=== PATIENT | female | born 1940 | race African-American/Black ===

== ENCOUNTER 2022-11-09 10:36 | Emergency (ER) | payer OTHER ==
[~2022-11-09] VITALS: Ht 165.1 cm; Wt 72.3 kg
[2022-11-09] MEDS ORDERED: ONDANSETRON HCL 4MG/2ML INJ IV ONE (11:00)
[2022-11-09] MEDS ORDERED: MORPHINE SULFATE 4 MG/ML CPJ (NOT FOR IM USE) IV ONE ×2 (11:00→16:30)
[2022-11-09 11:59] LABS: BASOPHILS % 0.3 % (0.0-2.0); EOSINOPHILS % 0.8 % (0.0-5.0); HEMATOCRIT. 39.8 % (36.0-48.0); LYMPHOCYTES % 19.7 % (20.0-50.0); MEAN CORPUSCULAR HEMOGLOBIN 27.3 pg (28.0-32.0); MEAN CORPUSCULAR VOLUME 83.7 fL (81.0-99.0); MEAN PLATELET VOLUME 10.2 fl (7.4-10.4); MONOCYTES % 6.2 % (2.0-8.0); PLATELET 174 x1000/uL (130-400); RED BLOOD CELL COUNT 4.76 mill/uL (4.2-5.4)
[2022-11-09 12:38] LABS: PARTIAL THROMBOPLASTIN TIME 30.9 sec (23.4-31.0)
[2022-11-09] MEDS ORDERED: ENOXAPARIN 60MG/0.6ML SYR SUBCUT SCH (13:45)
[2022-11-09] MEDS ORDERED: ENOXAPARIN 80MG/0.8ML SYR SUBCUT SCH (13:50)
[2022-11-09] MEDS ORDERED: IOHEXOL-350 100 ML BOTTLE ONE (14:28)
[2022-11-09 15:13] LABS: CHLORIDE 105 mEq/L (98-107)
[2022-11-09 18:00] VITALS: BP 131/59
== END 2022-11-09 19:25 | disposition short-term general hospital (02) ==
LOC: ER 10:36
DX: I70.90 Unspecified atherosclerosis (principal); I10 Essential (primary) hypertension
CPT/HCPCS: 36415; 71045; 71275; 73206; 74174; 80053; 83605; 83690; 83880; 84484; 85025; 85610; 85730; 86850; 86900; 86901; 93005; 96372; 96374; 96375; 99291; J1650; J2270; J2405; Q9967

== ENCOUNTER 2024-08-12 10:58 | Inpatient (IN) | payer OTHER ==
[~2024-08-12] VITALS: Ht 154.9 cm; Wt 59.0 kg
[2024-08-12 12:06] LABS: EOSINOPHILS % 3.7 % (0.0-5.0); HEMATOCRIT. 41.9 % (36.0-48.0); HEMOGLOBIN. 13.7 g/dL (12.0-16.0); LYMPHOCYTES % 22.8 % (20.0-50.0); MEAN CORPUSCULAR HEMOGLOBIN 28.8 pg (28.0-32.0); MEAN CORPUSCULAR HGB CONC 32.7 g/dL (31.0-37.0); MEAN CORPUSCULAR VOLUME 88.1 fL (81.0-99.0); MEAN PLATELET VOLUME 9.8 fl (7.4-10.4); MONOCYTES % 8.9 % (2.0-8.0); NEUTROPHILS % 63.6 % (40.0-76.0); PLATELET 126 x1000/uL (130-400); RED BLOOD CELL COUNT 4.76 mill/uL (4.2-5.4); RED CELL DISTRIBUTION WIDTH 15.9 % (11.6-14.6); WHITE BLOOD COUNT 4.8 x1000/uL (4.5-11.0)
[2024-08-12 12:19] LABS: CHLORIDE 106 mEq/L (98-107); POTASSIUM 4.7 mEq/L (3.5-5.1); SODIUM 141 mEq/L (136-145)
[2024-08-12 12:20] LABS: CALCIUM 9.7 mg/dL (8.7-10.4); CARBON DIOXIDE 29 mEq/L (21-32)
[2024-08-12 12:25] LABS: CREATININE 1.3 mg/dL (0.6-1.0); GLUCOSE 153 mg/dL (70-105); UREA NITROGEN BLOOD 19 mg/dL (9-23)
[2024-08-12 12:26] LABS: TROPONIN I HIGH SENSITIVITY 10 ng/L (3.0-34)
[2024-08-12] MEDS: ACETAMINOPHEN 325MG TABLET PO ONE (12:57)
[2024-08-12] MEDS: ACETAMINOPHEN 325MG TABLET ONE (14:12)
[2024-08-12 14:16] LABS: TROPONIN I HIGH SENSITIVITY 10 ng/L (3.0-34)
[2024-08-12] MEDS ORDERED: ONDANSETRON HCL 4MG/2ML INJ IV PRN (18:15)
[2024-08-12] MEDS ORDERED: IPRATROPIUM/ALBUTEROL 0.5-3(2.5)MG/3ML NEB NEB PRN (18:15)
[2024-08-12] MEDS ORDERED: ACETAMINOPHEN 325MG TABLET PO PRN (18:15)
[2024-08-12] MEDS ORDERED: ENOXAPARIN 40MG/0.4ML SYR SUBCUT SCH (18:15)
[2024-08-12] MEDS ORDERED: CLONIDINE 0.1MG TABLET PO PRN (18:15)
[2024-08-12 18:30] LABS: PROTHROMBIN TIME 11.6 sec (9.6-11.0)
[2024-08-12] MEDS ORDERED: ENOXAPARIN 60MG/0.6ML SYR SUBCUT NR (18:30)
[2024-08-12] MEDS: FUROSEMIDE 40MG/4ML VIAL IVP SCH (18:55)
[2024-08-12] MEDS ORDERED: ZOLPIDEM TARTRATE 5MG TABLET PO PRN (21:00)
[2024-08-12 21:45] VITALS: BP 140/62; PULSE 72; RESP 16; TEMP 36.44736
[2024-08-12] MEDS: ENOXAPARIN 60MG/0.6ML SYR SUBCUT SCH (21:55)
[2024-08-12 23:51] VITALS: BP 167/60; PULSE 76; RESP 16; TEMP 36.44736
[2024-08-13] VITALS: BP_SYST 145; BP_DIAS 80; BP_DIAS 85; PULSE 65; RESP 18; TEMP 36.50292; TEMP 36.5292; O2SAT 98
[2024-08-13 04:00] VITALS: BP 128/56; PULSE 66; RESP 20; TEMP 36.22512; O2SAT 99
[2024-08-13 05:43] LABS: POTASSIUM 3.7 mEq/L (3.5-5.1)
[2024-08-13 05:45] LABS: CALCIUM 9.2 mg/dL (8.7-10.4)
[2024-08-13 05:49] LABS: CREATININE 1.2 mg/dL (0.6-1.0)
[2024-08-13 05:50] LABS: HEMATOCRIT. 39.7 % (36.0-48.0); HEMOGLOBIN. 12.9 g/dL (12.0-16.0); MEAN CORPUSCULAR HEMOGLOBIN 28.4 pg (28.0-32.0); MEAN CORPUSCULAR HGB CONC 32.4 g/dL (31.0-37.0); MEAN CORPUSCULAR VOLUME 87.9 fL (81.0-99.0); MEAN PLATELET VOLUME 9.9 fl (7.4-10.4); PLATELET 130 x1000/uL (130-400); RED BLOOD CELL COUNT 4.52 mill/uL (4.2-5.4); RED CELL DISTRIBUTION WIDTH 15.6 % (11.6-14.6); WHITE BLOOD COUNT 4.9 x1000/uL (4.5-11.0)
[2024-08-13 05:53] LABS: CREATINE KINASE MB FRACTION 1.4 ng/mL (0.5-3.6)
[2024-08-13 07:35] LABS: DIFFERENTIAL COMMENT 1
[2024-08-13] MEDS: ASPIRIN 81MG EC TABLET PO SCH (12:06)
[2024-08-13] MEDS: AMLODIPINE 2.5MG TABLET PO SCH (12:07)
[2024-08-13] MEDS: CLOPIDOGREL 75MG TABLET PO SCH (12:09)
[2024-08-13] MEDS ORDERED: ASPI-1406 PO (14:58)
[2024-08-13] MEDS ORDERED: AMLO2.5T45 PO (14:58)
[2024-08-13] MEDS ORDERED: CLOP-31 PO (14:58)
[2024-08-13] MEDS ORDERED: ATOR10TA PO (14:58)
[2024-08-13 19:41] VITALS: BP 111/64; PULSE 85; TEMP 97.2; O2SAT 98
[2024-08-13 19:57] LABS: PLATELET ESTIMATE NORMAL
[2024-08-13] MEDS ORDERED: ATORVASTATIN CALCIUM 10MG TABLET PO SCH (21:00)
== END 2024-08-13 20:20 | disposition home or self-care (01) | DRG 282 ==
LOC: ER 11:00 → EDBEDREQ 12:32 → EDBEDREQTM 12:32 → 5WST 20:24 → UNDOADMIN 20:24 → 8WST 23:56
PROVIDERS: ADMIT Internal Medicine; ATTEND Internal Medicine
DX: I21.9 Acute myocardial infarction, unspecified (principal); I11.0 Hypertensive heart disease with heart failure; E78.5 Hyperlipidemia, unspecified; I25.10 Atherosclerotic heart disease of native coronary artery without angina pectoris; I49.1 Atrial premature depolarization; I50.9 Heart failure, unspecified; Z79.82 Long term (current) use of aspirin; Z86.73 Personal history of transient ischemic attack (TIA), and cerebral infarction without residual deficits; Z95.5 Presence of coronary angioplasty implant and graft
CPT/HCPCS: 36415; 71045; 80048; 82550; 82553; 84484; 85025; 93005; 93306; 93970; 99285; J1650; J1940

== ENCOUNTER 2025-03-24 14:48 | Inpatient (IN) | payer MEDICARE, OTHER ==
[~2025-03-24] VITALS: Ht 154.9 cm; Wt 64.0 kg
[~2025-03-24 14:48] MED LIST: AMLO2.5T45 PO; ASPI-1406 PO; ATOR10TA PO; CLOP-31 PO
[2025-03-24] MEDS ORDERED: CEFEPIME 1GM IN DEXT 5% 50ML IV ONE (15:00)
[2025-03-24] MEDS: VANCOMYCIN 1G PREMIX 200 ML IV ONE (15:44)
[2025-03-24] MEDS: SODIUM CHLORIDE 0.9% 1,000 ML IV ONE (15:44)
[2025-03-24 15:56] LABS: BASOPHILS % 0.5 % (0.0-2.0); EOSINOPHILS % 0.1 % (0.0-5.0); HEMOGLOBIN. 14.2 g/dL (12.0-16.0); LYMPHOCYTES % 14.3 % (20.0-50.0); MEAN CORPUSCULAR HEMOGLOBIN 27.9 pg (28.0-32.0); MEAN CORPUSCULAR HGB CONC 33.1 g/dL (31.0-37.0); MEAN CORPUSCULAR VOLUME 84.2 fL (81.0-99.0); MEAN PLATELET VOLUME 10.8 fl (7.4-10.4); MONOCYTES % 10.2 % (2.0-8.0); NEUTROPHILS % 74.9 % (40.0-76.0); PLATELET 121 x1000/uL (130-400)
[2025-03-24 16:07] LABS: INR 1.2
[2025-03-24 16:11] LABS: CHLORIDE 107 mEq/L (98-107); POTASSIUM 4.6 mEq/L (3.5-5.1); SODIUM 139 mEq/L (136-145)
[2025-03-24 16:12] LABS: CALCIUM 9.2 mg/dL (8.7-10.4); CARBON DIOXIDE 25 mEq/L (21-32)
[2025-03-24 16:17] LABS: CREATININE 1.3 mg/dL (0.6-1.0); GLUCOSE 131 mg/dL (70-105); UREA NITROGEN BLOOD 21 mg/dL (9-23)
[2025-03-24 16:19] LABS: ALANINE AMINOTRANSFERASE 494 IU/L (10-49); ASPARTATE AMINOTRANSFERASE 571 IU/L (<34); BILIRUBIN DIRECT 0.7 mg/dL (<=3.0)
[2025-03-24 16:20] LABS: BILIRUBIN TOTAL 1.4 mg/dL (0.1-1.0)
[2025-03-24 16:48] LABS: TROPONIN I HIGH SENSITIVITY 42 ng/L (3.0-34)
[2025-03-24 16:48] LABS: LACTIC ACID 2.5 mmol/L (0.4-2.0)
[2025-03-24] MEDS ORDERED: GUAIFENESIN 200MG/10ML SUGAR FREE UDC PO PRN (17:15)
[2025-03-24] MEDS ORDERED: MORPHINE SULFATE 2 MG/ML INJ (NOT FOR IM USE) IV PRN (17:15)
[2025-03-24] MEDS ORDERED: NITROGLYCERIN 0.4MG TABLET SL SL PRN (17:15)
[2025-03-24] MEDS ORDERED: CLONIDINE 0.1MG TABLET PO PRN (17:15)
[2025-03-24] MEDS ORDERED: MAGNESIUM/ALUMINUM HYDROXIDE/SIMETHICONE 30ML UDC PO PRN (17:15)
[2025-03-24] MEDS ORDERED: ACETAMINOPHEN 650MG/20.3ML UDC GT PRN ×2 (17:15)
[2025-03-24] MEDS ORDERED: DOCUSATE SODIUM 100MG CAPSULE PO PRN (17:15)
[2025-03-24] MEDS ORDERED: ONDANSETRON HCL 4MG/2ML INJ IV PRN (17:15)
[2025-03-24] MEDS ORDERED: HYDROCODONE/ACETAMINOPHEN 5/325MG TABLET PO PRN (17:15)
[2025-03-24] MEDS: DILTIAZEM HCL 5MG/ML 5ML VIAL IV ONE (17:34)
[2025-03-24] MEDS: ASPIRIN 325MG EC TABLET PO NR (18:02)
[2025-03-24 18:11] LABS: TROPONIN I HIGH SENSITIVITY 49 ng/L (3.0-34)
[2025-03-24] MEDS: METOPROLOL TARTRATE 5MG/5ML VIAL IV NR (18:19)
[2025-03-24 18:21] VITALS: PULSE 129; RESP 27; O2SAT 96
[2025-03-24] MEDS: IPRATROPIUM/ALBUTEROL 0.5-3(2.5)MG/3ML NEB HHN PRN (18:21)
[2025-03-24 18:38] LABS: HEPATITIS B SURFACE ANTIGEN NEGATIVE (Negative)
[2025-03-24] MEDS: FUROSEMIDE 40MG/4ML VIAL IVP NR (18:52)
[2025-03-24] MEDS: CEFEPIME 1GM/50ML 50 ML IV SCH (18:56)
[2025-03-24 18:58] LABS: HEPATITIS A AB IGM NEGATIVE (Negative)
[2025-03-24 18:59] LABS: HEPATITIS B CORE AB IGM NEGATIVE (Negative)
[2025-03-24 19:00] LABS: HEPATITIS C AB NON REACTIVE (Neg) (Negative)
[2025-03-24] MEDS ORDERED: IPRATROPIUM/ALBUTEROL 0.5-3(2.5)MG/3ML NEB HHN SCH (21:00)
[2025-03-24 21:15] LABS: TROPONIN I HIGH SENSITIVITY 64 ng/L (3.0-34)
[2025-03-24 21:35] VITALS: BP 119/93; PULSE 133; RESP 28; TEMP 36.5
[2025-03-24] MEDS: AMLODIPINE 2.5MG TABLET PO SCH (21:59)
[2025-03-24] MEDS: METOPROLOL TARTRATE 25MG TABLET PO SCH (21:59)
[2025-03-24] MEDS: ATORVASTATIN CALCIUM 40MG TABLET PO SCH (22:00)
[2025-03-24] MEDS: FUROSEMIDE 40MG/4ML VIAL IVP SCH (22:00)
[2025-03-24 23:07] LABS: CREATINE KINASE MB FRACTION 2.3 ng/mL (0.5-3.6)
[2025-03-25] VITALS (10 sets, daily range): BP systolic 95–132; BP diastolic 50–91; PULSE 94–150; RESP 13–24; TEMP 36.3–36.8; O2SAT 96–100
[2025-03-25 01:25] LABS: TROPONIN I HIGH SENSITIVITY 61 ng/L (3.0-34)
[2025-03-25 06:48] LABS: CALCIUM 9.1 mg/dL (8.7-10.4)
[2025-03-25 06:50] LABS: CREATINE KINASE MB FRACTION 2.9 ng/mL (0.5-3.6)
[2025-03-25 06:53] LABS: BASOPHILS % 0.4 % (0.0-2.0); CREATININE 1.4 mg/dL (0.6-1.0); DIFFERENTIAL COMMENT 0; EOSINOPHILS % 0.1 % (0.0-5.0); HEMATOCRIT. 43.6 % (36.0-48.0); HEMOGLOBIN. 14.3 g/dL (12.0-16.0); LYMPHOCYTES % 11.2 % (20.0-50.0); MEAN CORPUSCULAR HEMOGLOBIN 27.6 pg (28.0-32.0); MEAN CORPUSCULAR HGB CONC 32.8 g/dL (31.0-37.0); MEAN CORPUSCULAR VOLUME 84.1 fL (81.0-99.0); MEAN PLATELET VOLUME 11.4 fl (7.4-10.4); MONOCYTES % 8.2 % (2.0-8.0); NEUTROPHILS % 80.1 % (40.0-76.0); PLATELET 111 x1000/uL (130-400); RED BLOOD CELL COUNT 5.18 mill/uL (4.2-5.4); RED CELL DISTRIBUTION WIDTH 15.7 % (11.6-14.6); WHITE BLOOD COUNT 6.7 x1000/uL (4.5-11.0)
[2025-03-25 06:55] LABS: T4 FREE 1.37 ng/dL (0.89-1.76)
[2025-03-25 06:57] LABS: THYROID STIMULATING HORMONE 0.53 uIU/mL (0.55-4.78)
[2025-03-25] MEDS ORDERED: CEFEPIME 1GM IN DEXT 5% 50ML IV SCH (09:00)
[2025-03-25] MEDS ORDERED: APIX5TAB PO (09:11)
[2025-03-25] MEDS: CLOPIDOGREL 75MG TABLET PO SCH (09:58)
[2025-03-25] MEDS: APIXABAN 5 MG TABLET PO SCH (09:58)
[2025-03-25] MEDS: ASPIRIN 81MG EC TABLET PO SCH (09:58)
[2025-03-25] MEDS ORDERED: NALOXONE HCL 0.4MG/ML VIAL IV PRN (12:15)
[2025-03-25] MEDS ORDERED: VANCOMYCIN 750MG PREMIX 150 ML IV SCH (13:00)
[2025-03-25] MEDS: DIGOXIN 500MCG/2ML AMP IV NR (13:15)
[2025-03-25] MEDS: METOPROLOL TARTRATE 25MG TABLET PO SCH (15:04)
[2025-03-25] MEDS: IPRATROPIUM BROMIDE (0.02%) 0.5MG/2.5ML NEB HHN SCH (15:33)
[2025-03-25] MEDS: DIGOXIN 125MCG TABLET PO SCH (17:46)
[2025-03-25] MEDS ORDERED: CEFEPIME 1GM PREMIX 50ML IV SCH (18:00)
[2025-03-25 18:57] LABS: TROPONIN I HIGH SENSITIVITY 37 ng/L (3.0-34)
[2025-03-25] MEDS: METOPROLOL TARTRATE 50MG TABLET PO SCH (21:06)
[2025-03-26] VITALS (16 sets, daily range): BP systolic 94–129; BP diastolic 54–81; PULSE 97–145; RESP 13–28; TEMP 36.4–36.7; O2SAT 89–100
[2025-03-26] MEDS: ACETYLCYSTEINE 200MG/ML 20% VIAL 4ML INH SCH (02:18)
[2025-03-26 06:28] LABS: POTASSIUM 3.7 mEq/L (3.5-5.1)
[2025-03-26 06:34] LABS: CREATININE 1.4 mg/dL (0.6-1.0)
[2025-03-26 06:36] LABS: HEMATOCRIT 42.5 % (36.0-48.0); HEMOGLOBIN 13.8 g/dL (12.0-16.0); MEAN CORPUSCULAR HEMOGLOBIN 27.3 pg (28.0-32.0); MEAN CORPUSCULAR HGB CONC 32.4 g/dL (31.0-37.0); MEAN CORPUSCULAR VOLUME 84.4 fL (81.0-99.0); PLATELET 120 x1000/uL (130-400); RED BLOOD CELL COUNT 5.04 mill/uL (4.2-5.4); RED CELL DISTRIBUTION WIDTH 15.3 % (11.6-14.6)
[2025-03-26] MEDS: DIGOXIN 500MCG/2ML AMP IV SCH (12:01)
[2025-03-26] MEDS: FUROSEMIDE 40MG/4ML VIAL IVP SCH ×2 (14:00→21:38)
[2025-03-26] MEDS: METOPROLOL TARTRATE 25MG TABLET PO SCH ×2 (18:45→18:58)
[2025-03-26] MEDS: METOPROLOL TARTRATE 50MG TABLET PO SCH (20:15)
[2025-03-26] MEDS: SODIUM CHLORIDE 0.9% 1,000 ML IV SCH (21:39)
[2025-03-27] VITALS (14 sets, daily range): BP systolic 91–146; BP diastolic 59–108; PULSE 71–127; RESP 16–23; TEMP 36.5–36.8; O2SAT 92–100
[2025-03-27 06:18] LABS: POTASSIUM 3.9 mEq/L (3.5-5.1)
[2025-03-27 06:19] LABS: CALCIUM 8.7 mg/dL (8.7-10.4)
[2025-03-27 06:24] LABS: CREATININE 1.1 mg/dL (0.6-1.0)
[2025-03-27] MEDS: ALPRAZOLAM 0.25 MG TABLET PO SCH (13:45)
== END 2025-03-27 19:38 | disposition short-term general hospital (02) | DRG 871 ==
LOC: ER 14:48 → 5EST 16:44 → EDBEDREQSVC 16:45 → EDBEDREQTM 16:45 → EDBEDREQ 16:45 → ENRESERV 17:22 → CANRESERV 17:22 → EDBEDREQSVC 17:28 → ENRESERV 20:59
PROVIDERS: ADMIT Hospitalist; ATTEND Hospitalist
DX: A41.9 Sepsis, unspecified organism (principal); I21.4 Non-ST elevation (NSTEMI) myocardial infarction; J96.01 Acute respiratory failure with hypoxia; I50.43 Acute on chronic combined systolic (congestive) and diastolic (congestive) heart failure; R65.21 Severe sepsis with septic shock; N17.9 Acute kidney failure, unspecified; I48.19 Other persistent atrial fibrillation; M62.82 Rhabdomyolysis; I13.0 Hypertensive heart and chronic kidney disease with heart failure and stage 1 through stage 4 chronic kidney disease, or unspecified chronic kidney disease; Z66 Do not resuscitate; E11.40 Type 2 diabetes mellitus with diabetic neuropathy, unspecified; I49.9 Cardiac arrhythmia, unspecified; I25.10 Atherosclerotic heart disease of native coronary artery without angina pectoris; R74.01 Elevation of levels of liver transaminase levels; E11.65 Type 2 diabetes mellitus with hyperglycemia; D69.6 Thrombocytopenia, unspecified; E78.5 Hyperlipidemia, unspecified; N18.9 Chronic kidney disease, unspecified; I44.7 Left bundle-branch block, unspecified; G89.29 Other chronic pain; M54.2 Cervicalgia; R53.81 Other malaise; E11.22 Type 2 diabetes mellitus with diabetic chronic kidney disease; J44.9 Chronic obstructive pulmonary disease, unspecified; Z79.02 Long term (current) use of antithrombotics/antiplatelets; Z79.82 Long term (current) use of aspirin; Z86.73 Personal history of transient ischemic attack (TIA), and cerebral infarction without residual deficits; Z95.5 Presence of coronary angioplasty implant and graft; Z79.899 Other long term (current) drug therapy
CPT/HCPCS: 36415; 71045; 76700; 80048; 80061; 80076; 82550; 82553; 83036; 83516; 83605; 83735; 83880; 84145; 84439; 84443; 84484; 85025; 85027; 86705; 86709; 87340; 93005; 93306; 93970; 94070; 94640; 94664; 97110; 97116; 97162; 97166; 97535; 98960; 99291; A4606; J0692; J1160; J1940; J2270; J3370; J3490; J7030; J7608

== ENCOUNTER 2025-09-24 12:00 | Inpatient (IN) | payer MEDICARE, OTHER ==
[~2025-09-24] VITALS: Ht 154.9 cm; Wt 61.9 kg
[~2025-09-24 12:00] MED LIST changes: -AMLO2.5T45 PO; +APIX2.5T PO; -ATOR10TA PO; +ATOR40TA70 PO; -CLOP-31 PO; +DIGO125T80 MT; +EMPA25TA PO; +FURO20TA4 PO; +LISI-186 PO; +METO-539 PO
[2025-09-24 12:06] VITALS: O2SAT 97
[2025-09-24 12:44] LABS: BASOPHILS % 0.5 % (0.0-2.0); EOSINOPHILS % 0.3 % (0.0-5.0); HEMATOCRIT. 46.1 % (36.0-48.0); HEMOGLOBIN. 14.5 g/dL (12.0-16.0); LYMPHOCYTES % 16.0 % (20.0-50.0); MEAN PLATELET VOLUME 10.4 fl (7.4-10.4); MONOCYTES % 8.6 % (2.0-8.0); NEUTROPHILS % 74.6 % (40.0-76.0); PLATELET 116 x1000/uL (130-400); RED BLOOD CELL COUNT 5.35 mill/uL (4.2-5.4); RED CELL DISTRIBUTION WIDTH 16.5 % (11.6-14.6)
[2025-09-24 12:57] LABS: INR 1.1
[2025-09-24] MEDS: FUROSEMIDE 40MG/4ML VIAL IV ONE (12:58)
[2025-09-24 13:00] LABS: CREATININE 1.1 mg/dL (0.6-1.0)
[2025-09-24 13:01] LABS: PROTEIN TOTAL 6.6 g/dL (6.0-8.3); UREA NITROGEN BLOOD 14 mg/dL (9-23)
[2025-09-24 13:03] LABS: ASPARTATE AMINOTRANSFERASE 55 IU/L (<34); BILIRUBIN DIRECT 0.3 mg/dL (<=3.0); BILIRUBIN TOTAL 0.8 mg/dL (0.1-1.0)
[2025-09-24 13:18] LABS: TROPONIN I HIGH SENSITIVITY 40 ng/L (3.0-34)
[2025-09-24] MEDS ORDERED: GUAIFENESIN 200MG/10ML SUGAR FREE UDC PO PRN (14:30)
[2025-09-24] MEDS ORDERED: CLONIDINE 0.1MG TABLET PO PRN (14:30)
[2025-09-24] MEDS ORDERED: ONDANSETRON HCL 4MG/2ML INJ IV PRN (14:30)
[2025-09-24] MEDS ORDERED: DOCUSATE SODIUM 100MG CAPSULE PO PRN (14:30)
[2025-09-24] MEDS ORDERED: MAGNESIUM/ALUMINUM HYDROXIDE/SIMETHICONE 30ML UDC PO PRN (14:30)
[2025-09-24] MEDS ORDERED: IPRATROPIUM/ALBUTEROL 0.5-3(2.5)MG/3ML NEB HHN PRN (14:30)
[2025-09-24] MEDS ORDERED: ACETAMINOPHEN 325MG TABLET PO PRN (14:30)
[2025-09-24] MEDS: ASPIRIN 81MG TABLET PO SCH (15:00)
[2025-09-24 15:23] LABS: CLARITY URINE CLEAR (CLEAR); COLOR URINE YELLOW (YELLOW); GLUCOSE URINE 3+ (NEGATIVE); KETONES URINE NEGATIVE (NEGATIVE); LEUKOCYTE ESTERASE URINE NEGATIVE (NEGATIVE); NITRITE URINE NEGATIVE (NEGATIVE); OCCULT BLOOD URINE NEGATIVE (NEGATIVE); PH URINE 5.5 (4.5-8.0); PROTEIN URINE 1+ (NEGATIVE); SPECIFIC GRAVITY URINE 1.016 (1.005-1.030); UROBILINOGEN URINE 0.2 E.U./dL (0.2-1.0)
[2025-09-24 16:00] VITALS: BP 135/83; PULSE 101; RESP 17; TEMP 36.9; O2SAT 100
[2025-09-24 16:04] LABS: RBC URINE 0-2 /hpf (0-2); SQUAMOUS EPITHELIAL CELL URINE FEW /lpf (RARE/1+); WBC URINE 0-2 /hpf (0-2)
[2025-09-24 16:05] LABS: BACTERIA URINE TRACE
[2025-09-24 16:18] VITALS: BP 116/88; PULSE 99; RESP 20; TEMP 36.974
[2025-09-24] MEDS: FUROSEMIDE 40MG/4ML VIAL IVP SCH (16:43)
[2025-09-24] MEDS: LISINOPRIL 5MG TABLET PO SCH (16:43)
[2025-09-24 20:00] VITALS: BP 126/99; PULSE 109; RESP 19; TEMP 36.7; O2SAT 100
[2025-09-24] MEDS: METOPROLOL TARTRATE 50MG TABLET PO SCH (21:45)
[2025-09-24] MEDS: ATORVASTATIN CALCIUM 40MG TABLET PO SCH (21:45)
[2025-09-24] MEDS: APIXABAN 2.5 MG TABLET PO SCH (21:45)
[2025-09-25] VITALS: BP 124/68; PULSE 75; RESP 15; TEMP 36.7; O2SAT 100
[2025-09-25 00:33] LABS: TROPONIN I HIGH SENSITIVITY 42 ng/L (3.0-34)
[2025-09-25 04:00] VITALS: BP 119/62; PULSE 70; RESP 21; TEMP 36.7; O2SAT 100
[2025-09-25 07:39] LABS: BASOPHILS % 0.5 % (0.0-2.0); EOSINOPHILS % 2.3 % (0.0-5.0); HEMATOCRIT. 45.6 % (36.0-48.0); HEMOGLOBIN. 14.4 g/dL (12.0-16.0); LYMPHOCYTES % 22.4 % (20.0-50.0); MEAN PLATELET VOLUME 10.7 fl (7.4-10.4); MONOCYTES % 10.5 % (2.0-8.0); NEUTROPHILS % 64.3 % (40.0-76.0); PLATELET 113 x1000/uL (130-400); RED BLOOD CELL COUNT 5.37 mill/uL (4.2-5.4); RED CELL DISTRIBUTION WIDTH 16.2 % (11.6-14.6)
[2025-09-25 08:00] VITALS: BP 145/75; PULSE 97; RESP 21; TEMP 36.6; O2SAT 100
[2025-09-25 08:04] LABS: CREATINE KINASE MB FRACTION 1.7 ng/mL (0.5-3.6); TROPONIN I HIGH SENSITIVITY 29 ng/L (3.0-34)
[2025-09-25 08:08] LABS: T4 FREE 1.67 ng/dL (0.89-1.76)
[2025-09-25 08:12] LABS: CREATININE 1.1 mg/dL (0.6-1.0); TRIGLYCERIDE 48.0 mg/dL (0-150); UREA NITROGEN BLOOD 17.0 mg/dL (9-23)
[2025-09-25 08:13] LABS: LDL CHOLESTEROL 41.0 mg/dL (5-100)
[2025-09-25 12:00] VITALS: BP 110/71; PULSE 84; RESP 23; TEMP 36.7; O2SAT 99
[2025-09-25 16:00] VITALS: BP 104/62; PULSE 87; RESP 17; TEMP 36.6; O2SAT 100
[2025-09-25 20:00] VITALS: BP 81/50; PULSE 87; RESP 19; TEMP 36.6
[2025-09-25 20:31] LABS: TROPONIN I HIGH SENSITIVITY 29 ng/L (3.0-34)
[2025-09-25] MEDS: FAMOTIDINE 20MG TABLET PO SCH (21:44)
[2025-09-26 00:11] VITALS: BP 108/63; PULSE 72; RESP 19; TEMP 36.3
[2025-09-26 04:00] VITALS: BP 96/48; PULSE 73; RESP 18; TEMP 36.2
[2025-09-26 08:00] VITALS: BP 122/68; PULSE 87; RESP 22; TEMP 36.3; O2SAT 98
[2025-09-26 12:00] VITALS: BP 128/72; PULSE 69; RESP 21; TEMP 36.5
[2025-09-26 16:00] VITALS: BP 131/62; PULSE 72; RESP 21; TEMP 36.4
[2025-09-26] MEDS: ACETAMINOPHEN 325MG TABLET PO PRN (17:44)
[2025-09-26 20:00] VITALS: BP 129/81; PULSE 108; RESP 23; TEMP 36.6
[2025-09-27] VITALS (8 sets, daily range): BP systolic 94–114; BP diastolic 56–83; PULSE 73–92; RESP 12–26; TEMP 36.4–37.2; O2SAT 100
[2025-09-27 07:19] LABS: BASOPHILS % 0.4 % (0.0-2.0); EOSINOPHILS % 1.7 % (0.0-5.0); HEMATOCRIT. 47.7 % (36.0-48.0); HEMOGLOBIN. 15.2 g/dL (12.0-16.0); LYMPHOCYTES % 23.0 % (20.0-50.0); MEAN PLATELET VOLUME 11.6 fl (7.4-10.4); MONOCYTES % 12.1 % (2.0-8.0); NEUTROPHILS % 62.8 % (40.0-76.0); PLATELET 127 x1000/uL (130-400); RED BLOOD CELL COUNT 5.65 mill/uL (4.2-5.4); RED CELL DISTRIBUTION WIDTH 16.0 % (11.6-14.6)
[2025-09-27 07:23] LABS: UREA NITROGEN BLOOD 33.0 mg/dL (9-23)
[2025-09-27 07:32] LABS: CREATININE 1.5 mg/dL (0.6-1.0)
[2025-09-27] MEDS ORDERED: SODIUM CHLORIDE 0.9% 500 ML IV ONE (10:00)
[2025-09-27] MEDS ORDERED: LIP40 PO (10:05)
[2025-09-28] VITALS: BP 106/77; PULSE 72; RESP 21; TEMP 36.6; O2SAT 100
[2025-09-28 04:00] VITALS: BP 100/66; PULSE 86; RESP 13; TEMP 36.4; O2SAT 100
[2025-09-28 08:00] VITALS: BP 113/72; PULSE 82; RESP 32; TEMP 36.6; O2SAT 96
[2025-09-28 12:00] VITALS: BP 99/52; PULSE 101; RESP 23; TEMP 36.7; O2SAT 98
[2025-09-28 16:00] VITALS: BP 98/58; PULSE 94; RESP 21; TEMP 36.8; O2SAT 97
== END 2025-09-28 16:50 | disposition home health service (06) | DRG 280 ==
LOC: ER 12:00 → 3WST 13:59 → EDBEDREQ 14:06 → EDBEDREQTM 14:06 → 3WST 09-27 16:21
PROVIDERS: ADMIT Internal Medicine; ATTEND Internal Medicine
DX: I13.0 Hypertensive heart and chronic kidney disease with heart failure and stage 1 through stage 4 chronic kidney disease, or unspecified chronic kidney disease (principal); I21.4 Non-ST elevation (NSTEMI) myocardial infarction; I50.23 Acute on chronic systolic (congestive) heart failure; J96.00 Acute respiratory failure, unspecified whether with hypoxia or hypercapnia; Z79.01 Long term (current) use of anticoagulants; E11.22 Type 2 diabetes mellitus with diabetic chronic kidney disease; N18.9 Chronic kidney disease, unspecified; I37.1 Nonrheumatic pulmonary valve insufficiency; I42.9 Cardiomyopathy, unspecified; I48.91 Unspecified atrial fibrillation; I25.10 Atherosclerotic heart disease of native coronary artery without angina pectoris; I08.1 Rheumatic disorders of both mitral and tricuspid valves; F17.200 Nicotine dependence, unspecified, uncomplicated; Z86.73 Personal history of transient ischemic attack (TIA), and cerebral infarction without residual deficits; Z95.5 Presence of coronary angioplasty implant and graft
CPT/HCPCS: 36415; 71045; 73030; 80048; 80061; 80076; 80162; 81003; 82550; 82553; 83036; 83735; 83880; 84439; 84443; 84484; 85025; 85379; 93005; 93306; 93970; 96374; 96375; 97166; 99291; A4606; A4615; J1938